=== PATIENT | male | born 1935 | race Caucasian/White ===

== ENCOUNTER 2016-12-05 16:03 | Emergency (ER) | payer MEDICARE, OTHER ==
[~2016-12-05] VITALS: Ht 172.7 cm; Wt 72.7 kg
[~2016-12-05 16:03] MED LIST: ASPI81 PO; ATOR40TA PO; NAME10TA PO; TOPR25TA2 PO; VITA-83 OR; VITA100020 SL
[2016-12-05 16:28] VITALS: BP 109/53; PULSE 71; RESP 16; TEMP 98.6; O2SAT 97
[2016-12-05] MEDS ORDERED: NAME10TA PO (19:20)
[2016-12-05] MEDS ORDERED: VITA500C9 CHEW (19:20)
[2016-12-05] MEDS ORDERED: DONE5TAB7 PO (19:20)
[2016-12-05] MEDS ORDERED: ASPI81CH CHEW (19:20)
[2016-12-05] MEDS ORDERED: FOLBTAB4 (19:20)
[2016-12-05] MEDS ORDERED: ATOR40TA16 PO (19:20)
[2016-12-05] MEDS ORDERED: VITA100064 PO (19:20)
[2016-12-05] MEDS ORDERED: VITA500T49 PO (19:20)
[2016-12-05] MEDS ORDERED: METO50TA PO (19:20)
--- NOTE | 2016-12-05 19:41 | PD ---
HPI Chief Complaint: Skin Problem Time Seen by Provider: 19:38 Travel History International Travel<30 days: No Contact w/Intl Traveler<30days: No Traveled to known affect area: No History of Present Illness HPI Patient comes in complaining of painful varicose vein the first are bothering him 2 days ago. Patient reports he has a long history of varicose veins has had surgery in the past per family, however they came back. Patient states he has pain in the varicose vein to palpation only. Denies any pain with walking. Denies any radiation of the pain. Patient denies doing anything for this. Denies any known trauma or fevers. Patient reports she is concerned that it may rupture and bleed similar to previous varicose vein. PFSH Past Medical History Arthritis: Yes Asthma: No Cancer: Yes (Bladder, prostate ) High Cholesterol: Yes Chest Pain: Yes COPD: Yes Diminished Hearing: No Endocrine: No Gastrointestinal Disorders: Yes GERD: Yes Genitourinary: No Hiatal Hernia: No Hypertension: Yes Immune Disorder: No Musculoskeletal: Yes Neurologic: No Psychiatric: No Respiratory: Yes Radiation Therapy: Yes Sleep Apnea: No Ulcer: Yes (1997) Past Surgical History Abdominal Aneurysm Repair: Yes (with stent) Abdominal Surgery: Yes (AAA 2001) Body Medical Devices: STENT GRAFT FOR AAA Cardiac Surgery: No Eye Surgery: Yes Pacemaker: No Thoracic Surgery: No Other Surgery: Yes (varicose vein ) Social History Alcohol Use: No Tobacco Use: No Substance Use: No Allergies-Medications (Allergen,Severity, Reaction): Coded Allergies: No Known Allergies (Verified , 12/05/16) Reported Meds & Prescriptions Reported Meds & Active Scripts Active Reported Vitamin D (Cholecalciferol) 1,000 Unit Tab 3,000 Units PO DAILY Vitamin C (Ascorbic Acid) 500 Mg Chew 500 Mg CHEW DAILY Vitamin B12 (Cyanocobalamin) 500 Mcg Tab 1,000 Mcg PO DAILY Aspirin 81 Mg Chew 81 Mg CHEW DAILY Folbic (Folic Xzsd-Rgijspbzkn-Ekdtvqlg) 2.5-25-2 Mg Tab Metoprolol Tartrate 50 Mg Tab 50 Mg PO DAILY Atorvastatin (Atorvastatin Calcium) 40 Mg Tab 40 Mg PO HS Donepezil 5 Mg Tab 5 Mg PO HS Namenda (Memantine) 10 Mg Tab 28 Mg PO DAILY Review of Systems Except as stated in HPI: all other systems reviewed are Neg Physical Exam Narrative GENERAL: Well-developed, well nourished, in no acute distress, and non-ill appearing. SKIN: Warm and dry. Multiple varicose veins noted bilateral upper extremities. Patient reports pain with palpation of the right posterior calf. It is afebrile, not indurated, without crepitus, or drainage. There is no signs of infection. HEAD: Atraumatic. Normocephalic. EYES: Pupils equal and round. EOMI. No scleral icterus. No injection or drainage. ENT: No nasal bleeding or discharge. Mucous membranes pink and moist. NECK: Trachea midline. Supple. No nuclear rigidity. CARDIOVASCULAR: Dorsal pulses 2+ intact and equal bilaterally. Capillary refill less 2 seconds. No pedal edema. RESPIRATORY: No accessory muscle use. No respiratory distress. MUSCULOSKELETAL: No obvious deformities. No clubbing. No cyanosis. No edema. Full range of motion. Normal gait. Negative Homans sign. NEUROLOGICAL: Awake and alert. No obvious cranial nerve deficits. Motor grossly within normal limits. Normal speech. PSYCHIATRIC: Appropriate mood and affect; insight and judgment normal. Data Data Last Documented VS Vital Signs Date Time Temp Pulse Resp B/P Pulse Ox O2 Delivery O2 Flow Rate FiO2 12/05/16 16:28 98.6 71 16 109/53 97 MDM Medical Decision Making Medical Screen Exam Complete: Yes Emergency Medical Condition: Yes Differential Diagnosis Varicose vein, cellulitis, thrombophlebitis, other Narrative Course Patient in no obvious distress upon re-evaluation. Any questions/concerns in reference to patient diagnosis/condition discussed and clarified prior to patient's discharge. Reinforced sheer importance of close follow up with patient 's primary physician or primary care clinic. Instructed patient to return to ED immediately, if symptoms return/worsen. Pt showed understanding of above instructions. Further instructions and recommendations were detailed in discharge paperwork. Pt ambulated without difficulty out of ED at discharge. Diagnosis Primary Impression: Varicose veins of both lower extremities Patient Instructions: General Instructions, Varicose Veins (ED) Additional Instructions: Follow-up with your primary care physician in 2-3 days for reevaluation. Return to the emergency department if symptoms get worse. Disposition: 01 DISCHARGE HOME Condition: Stable Gonzalo Banda Dec 05, 2016 19:41
== END 2016-12-05 19:54 | disposition home or self-care (01) ==
LOC: PHED 16:03 → PHEFT 19:54
DX: I83.813 Varicose veins of bilateral lower extremities with pain (principal)
CPT/HCPCS: 99282

== ENCOUNTER 2017-12-05 21:47 | Inpatient (IN) | payer MEDICARE, OTHER ==
[~2017-12-05] VITALS: Ht 175.3 cm; Wt 66.0 kg
[~2017-12-05 21:47] MED LIST changes: +ASPI-516 CHEW; -ASPI81 PO; -ATOR40TA PO; +ATOR40TA16 PO; +DONE5TAB7 PO; +FOLBTAB4; +METO50TA PO; -TOPR25TA2 PO; -VITA-83 OR; -VITA100020 SL; +VITA100064 PO; +VITA500C9 CHEW; +VITA500T35 PO
[2017-12-05 21:48] VITALS: BP 150/74; PULSE 85; RESP 24; TEMP 100; O2SAT 93
[2017-12-05] MEDS ORDERED: SODIUM CHLOR 0.9% 1000 ML INJ 1,000 ML IV ONE (21:57)
[2017-12-05] MEDS ORDERED: VITA250T3 PO (22:32)
[2017-12-05] MEDS ORDERED: TOPR50TA PO (22:32)
[2017-12-05] MEDS ORDERED: FOLI400T PO (22:32)
[2017-12-05] MEDS ORDERED: DONE10TA7 PO (22:32)
[2017-12-05] MEDS ORDERED: MEMA28CA PO (22:32)
[2017-12-05 22:33] LABS: AUTOMATED NEUTROPHIL # 13.7 TH/MM3 (1.8-7.7); BASOPHIL # 0.3 TH/MM3 (0-0.2); BASOPHIL % 1.8 % (0.0-2.0); HEMATOCRIT 37.5 % (39.0-51.0); HEMOGLOBIN 12.1 GM/DL (13.0-17.0); LYMPH % 2.9 % (9.0-44.0); LYMPHOCYTE # 0.4 TH/MM3 (1.0-4.8); MEAN CELL VOLUME 98.5 FL (80.0-100.0); MEAN CORPUSCULAR HEMOGLOBIN 31.9 PG (27.0-34.0); MEAN CORPUSCULAR HGB CONC 32.3 % (32.0-36.0); MEAN PLATELET VOLUME 8.3 FL (7.0-11.0); MONO % 4.2 % (0.0-8.0); MONOCYTE # 0.6 TH/MM3 (0-0.9); NEUT % 91.1 % (16.0-70.0); PLATELET COUNT 153 TH/MM3 (150-450); RED CELL DISTRIBUTION WIDTH 13.3 % (11.6-17.2)
[2017-12-05 22:35] LABS: CHLORIDE 109 MEQ/L (98-107); SODIUM (NA) 141 MEQ/L (136-145)
--- NOTE | 2017-12-05 22:35 | RADRPT ---
EXAM DATE/TIME: 12/05/2017 22:21 [facility] COMPARISON: No previous studies available for comparison. INDICATIONS : Cough, sneezing, and congestion. MEDICAL HISTORY : Carcinoma, bladder. Carcinoma, prostatic. Chronic obstructive pulmonary disease. SURGICAL HISTORY : None. ENCOUNTER: Initial ACUITY: 4 - 6 days PAIN SCORE: 0/10 LOCATION: Bilateral chest FINDINGS: A single view of the chest demonstrates minimal basilar scarring or atelectasis. No effusion. No pneu mothorax. Heart size mildly enlarged. Tortuous aorta. CONCLUSION: 1. Minimal basilar scarring or atelectasis. Tortuous aorta. No effusion or pneumothorax. Rui Mcmanus MD on December 05, 2017 at 22:33 Board Certified Radiologist. This report was verified electronically.
[2017-12-05 22:40] LABS: ALBUMIN 3.2 GM/DL (3.4-5.0); BICARBONATE 23.4 MEQ/L (21.0-32.0); CALCIUM 7.8 MG/DL (8.5-10.1); GLUCOSE,RANDOM 131 MG/DL (74-106); INTERNATIONAL NORMALIZED RATIO 1.1 RATIO; PROTHROMBIN TIME - PATIENT 11.4 SEC (9.8-11.6)
[2017-12-05 22:41] LABS: BLOOD UREA NITROGEN 25 MG/DL (7-18)
[2017-12-05 22:43] LABS: ALT (GPT) 19 U/L (12-78); AST (GOT) 28 U/L (15-37); GLOMERULAR FILTRATION RATE 58 ML/MIN (>89)
[2017-12-05 22:45] LABS: TOTAL BILIRUBIN ADULT 0.7 MG/DL (0.2-1.0); TOTAL PROTEIN 7.4 GM/DL (6.4-8.2)
[2017-12-05 22:46] LABS: ALKALINE PHOSPHATASE 123 U/L (45-117)
[2017-12-05 22:48] LABS: TROPONIN I LESS THAN 0.02 NG/ML (0.02-0.05)
--- NOTE | 2017-12-05 23:31 | PD ---
HPI Chief Complaint: Fever Time Seen by Provider: 21:57 Travel History International Travel<30 days: No Contact w/Intl Traveler<30days: No Traveled to known affect area: No History of Present Illness HPI Patient is an 82-year-old male with history of dementia, who comes in due to fever with cough. Per his , he has been coughing for about a week. She says today she noticed she was shaking, and he was very weak. She says eventually he was unable to get up on his own or stand on his own. She took his temperature tonight in case she says it was 101.7. She did give him some Tylenol prior to coming in. He has dementia, he cannot provide any history. PFSH Past Medical History Hx Anticoagulant Therapy: Yes (ASPIRIN DAILY) AAA: Yes Alzheimer's Disease: Yes Arthritis: Yes Asthma: No Cancer: Yes (Bladder, prostate ) Cardiovascular Problems: Yes (2D ECHO: 2015, NUCLEAR STRESS TEST: 2015) High Cholesterol: Yes Chest Pain: Yes COPD: Yes Dementia: Yes Diminished Hearing: No Endocrine: No Gastrointestinal Disorders: Yes (COLONOSCOPY: 2008) GERD: Yes Genitourinary: No Hiatal Hernia: No Hypertension: Yes Immune Disorder: No Musculoskeletal: Yes (FROZEN SHOULDER/ARTHRITIS) Neurologic: No Psychiatric: No Respiratory: Yes (COLLAPSED LUN) Myocardial Infarction: Yes Radiation Therapy: Yes Sleep Apnea: No Ulcer: Yes (1997) Tetanus Vaccination: < 5 Years Influenza Vaccination: Yes Past Surgical History Abdominal Aneurysm Repair: Yes (with stent) Abdominal Surgery: Yes (AAA STENT GRAFT: 2001, INGUINAL HERNIAS X3) Body Medical Devices: STENT GRAFT FOR AAA Cardiac Surgery: No Eye Surgery: Yes (BILATERAL CATARACT) Pacemaker: No Thoracic Surgery: No Other Surgery: Yes (varicose vein ) Social History Alcohol Use: No Tobacco Use: No (QUIT 1984) Substance Use: No Allergies-Medications (Allergen,Severity, Reaction): Coded Allergies: No Known Allergies (Verified Adverse Reaction, Unknown, 12/05/17) Reported Meds & Prescriptions Reported Meds & Active Scripts Active Reported Vitamin C (Ascorbic Acid) 250 Mg Tab 1,000 Mg PO HS Folic Acid 0.4 Mg Tab 400 Mcg PO HS Toprol XL (Metoprolol Succinate) 50 Mg Tab 50 Mg PO HS Donepezil 10 Mg Tab 10 Mg PO HS Namenda Xr (Memantine) 28 Mg Caper 28 Mg PO DAILY Vitamin D3 (Cholecalciferol) 1,000 Unit Tab 3,000 Units PO HS Vitamin B12 (Cyanocobalamin) 500 Mcg Tab 1,000 Mcg PO HS Aspirin 81 Mg Chew 81 Mg CHEW DAILY Atorvastatin (Atorvastatin Calcium) 40 Mg Tab 40 Mg PO HS Review of Systems ROS Limitations: Other: (Dementia) Physical Exam Narrative GENERAL: Awake and alert, in no acute distress. SKIN: Focused skin assessment warm/dry. No wounds or signs of infection. HEAD: Atraumatic. Normocephalic. EYES: Pupils equal and round. No scleral icterus. No injection or drainage. ENT: Mucous membranes pink and moist. NECK: Trachea midline. No JVD. CARDIOVASCULAR: Regular rate and rhythm. No murmur appreciated. RESPIRATORY: No accessory muscle use. Crackles in the right lung base. Breath sounds equal bilaterally. GASTROINTESTINAL: Abdomen soft, non-tender, nondistended. MUSCULOSKELETAL: No obvious deformities. No clubbing. No cyanosis. No edema. NEUROLOGICAL: Awake and alert, oriented to person only. No obvious cranial nerve deficits. Motor grossly within normal limits. Normal speech. PSYCHIATRIC: Appropriate mood and affect; insight and judgment normal. Data Data Last Documented VS Vital Signs Date Time Temp Pulse Resp B/P (MAP) Pulse Ox O2 Delivery O2 Flow Rate FiO2 12/05/17 22:46 97 Nasal Cannula 2.00 12/05/17 21:48 100.0 85 24 150/74 (99) Orders Orders Electrocardiogram (12/05/17 21:57) Complete Blood Count With Diff (12/05/17 21:57) Comprehensive Metabolic Panel (12/05/17 21:57) Prothrombin Time / Inr (Pt) (12/05/17 21:57) Act Partial Throm Time (Ptt) (12/05/17 21:57) Lactic Acid Sepsis Protocol (12/05/17 21:57) Troponin I (12/05/17 21:57) Urinalysis - C+S If Indicated (12/05/17 21:57) Influenzae A/B Antigen (12/05/17 21:57) Blood Culture (12/05/17 21:57) Chest, Single Ap (12/05/17 21:57) Blood Glucose (12/05/17 21:57) Ecg Monitoring (12/05/17 21:57) Iv Access Insert/Monitor (12/05/17 21:57) Oximetry (12/05/17 21:57) Oxygen Administration (12/05/17 21:57) Sodium Chlor 0.9% 1000 Ml Inj (Ns 1000 M (12/05/17 21:57) Ct Thorax/ Chest Wo Iv Contras (12/05/17 ) Sodium Chlorid 0.9% 500 Ml Inj (Ns 500 M (12/05/17 23:45) Ceftriaxone Inj (Rocephin Inj) (12/06/17 00:00) Azithromycin Inj (Zithromax Inj) (12/06/17 00:00) Labs Laboratory Tests Test 12/05/17 22:10 12/05/17 23:50 White Blood Count 15.0 TH/MM3 Red Blood Count 3.80 MIL/MM3 Hemoglobin 12.1 GM/DL Hematocrit 37.5 % Mean Corpuscular Volume 98.5 FL Mean Corpuscular Hemoglobin 31.9 PG Mean Corpuscular Hemoglobin Concent 32.3 % Red Cell Distribution Width 13.3 % Platelet Count 153 TH/MM3 Mean Platelet Volume 8.3 FL Neutrophils (%) (Auto) 91.1 % Lymphocytes (%) (Auto) 2.9 % Monocytes (%) (Auto) 4.2 % Eosinophils (%) (Auto) 0.0 % Basophils (%) (Auto) 1.8 % Neutrophils # (Auto) 13.7 TH/MM3 Lymphocytes # (Auto) 0.4 TH/MM3 Monocytes # (Auto) 0.6 TH/MM3 Eosinophils # (Auto) 0.0 TH/MM3 Basophils # (Auto) 0.3 TH/MM3 CBC Comment DIFF FINAL Differential Comment Prothrombin Time 11.4 SEC Prothromb Time International Ratio 1.1 RATIO Activated Partial Thromboplast Time 27.1 SEC Blood Urea Nitrogen 25 MG/DL Creatinine 1.20 MG/DL Random Glucose 131 MG/DL Total Protein 7.4 GM/DL Albumin 3.2 GM/DL Calcium Level 7.8 MG/DL Alkaline Phosphatase 123 U/L Aspartate Amino Transf (AST/SGOT) 28 U/L Alanine Aminotransferase (ALT/SGPT) 19 U/L Total Bilirubin 0.7 MG/DL Sodium Level 141 MEQ/L Potassium Level 3.9 MEQ/L Chloride Level 109 MEQ/L Carbon Dioxide Level 23.4 MEQ/L Anion Gap 9 MEQ/L Estimat Glomerular Filtration Rate 58 ML/MIN Lactic Acid Level 1.2 mmol/L Troponin I LESS THAN 0.02 NG/ML MDM Medical Decision Making Medical Screen Exam Complete: Yes Emergency Medical Condition: Yes Medical Record Reviewed: Yes Interpretation(s) ECG shows NSR at 83 with frequent PVCs. No ST elevation or depression. Differential Diagnosis pneumonia vs UTI vs electrolyte abnormalities vs dehydration vs influenza Narrative Course Patient is a 82 year old male with history of dementia who comes in due to fever with cough and weakness. Exam shows crackles at the right lung base. IV established, labs sent. Labs show an elevated WBC count to 15 with a left shift. Patient given IVF. CXR shows basial scarring/atelectasis. Concern is for pneumonia, CT chest ordered. Patient treated empirically with rocephin and Azithromycin. Patient is too weak to walk. Hypoxic on room air. He will be admitted for further management. Diagnosis Primary Impression: Pneumonia Qualified Codes: J18.1 - Lobar pneumonia, unspecified organism Additional Impressions: Fever Qualified Codes: R50.9 - Fever, unspecified Weakness Hypoxia Admitting Information Admitting Physician Requests: Admit Laney Greene MD Dec 05, 2017 23:31
[2017-12-05] MEDS ORDERED: SODIUM CHLORID 0.9% 500 ML INJ 500 ML IV ONE (23:45)
[2017-12-06] VITALS (10 sets, daily range): BP systolic 125–179; BP diastolic 69–84; PULSE 69–87; RESP 14–20; TEMP 96.5–98.8; O2SAT 94–98
[2017-12-06] MEDS ORDERED: cefTRIAXone INJ 1,000 MG in SODIUM CHLORIDE 0.9% INJ 100 ML IV ONE ×2
[2017-12-06] MEDS ORDERED: AZITHROMYCIN INJ 500 MG in SODIUM CHLOR 0.9% 250 ML INJ 250 ML IV ONE ×2
[2017-12-06 00:03] LABS: BILIRUBIN, URINE NEG (NEG); BLOOD, URINE SMALL (NEG); GLUCOSE,URINE NEG (NEG); KETONE, URINE NEG (NEG); NITRITE,URINE NEG (NEG); PH, URINE 5.5 (5.0-8.5); URINE LEUKOCYTE ESTERASE TRACE (NEG)
[2017-12-06 00:08] LABS: URINE COLOR YELLOW (YELLW/STRAW)
[2017-12-06 00:09] LABS: SQUAMOUS EPITHELIAL CELL URINE 0-5 /hpf (0-5)
[2017-12-06] MEDS ORDERED: SODIUM CHLORIDE 0.9% FLUSH 10 ML FLUSH IV FLUSH PRN (00:45)
[2017-12-06] MEDS ORDERED: NALOXONE HCL 0.4 MG/ML AMP IV PUSH PRN ×2 (00:45→09:30)
--- NOTE | 2017-12-06 00:58 | RADRPT ---
EXAM DATE/TIME: 12/06/2017 00:36 [facility] COMPARISON: CHEST SINGLE AP, December 05, 2017, 22:21. INDICATIONS : Evaluate for pneumonia. RADIATION DOSE: 8.56 CTDIvol (mGy) MEDICAL HISTORY : Dementia. Cardiovascular disease Hypertension. COPD SURGICAL HISTORY : Abdominal aortic aneurysm repair. Inguinal hernia repair. ENCOUNTER: Initial ACUITY: 1 day PAIN SCALE: 4/10 LOCATION: Bilateral chest TECHNIQUE: Volumetric scanning of the chest was performed. Using automated exposure control and adjustment of t he mA and/or kV according to patient size, radiation dose was kept as low as reasonably achievable to obtain optimal diagnostic quality images. DICOM format image data is available electronically for r eview and comparison. Follow-up recommendations for detected pulmonary nodules are based at a minimum on nodule size and pa tient risk factors according to Fleischner Society Guidelines. FINDINGS: Airspace process is present right lower lobe posteriorly most likely pneumonia with extensive CO PD changes. Approximate 2.2 cm triangular shaped density is present left lung base adjacent hemidiaph ragm probable scar and could be followed. Coronary artery calcifications are seen typically seen with CAD and need to be evaluated clinically. Approximate 1.3 cm simple cyst is present left hepatic lobe . CONCLUSION: 1. Right lower lobe pneumonia. 2. Probable scar left lung base, repeat noncontrast chest CT is suggested in 6 months as a conservati ve follow up. Jean Pierre Zavala MD on December 06, 2017 at 0:52 Board Certified Radiologist. This report was verified electronically.
[2017-12-06 06:04] LABS: HEMATOCRIT 34.3 % (39.0-51.0); HEMOGLOBIN 11.6 GM/DL (13.0-17.0); MEAN CELL VOLUME 98.6 FL (80.0-100.0); MEAN CORPUSCULAR HEMOGLOBIN 33.2 PG (27.0-34.0); MEAN CORPUSCULAR HGB CONC 33.7 % (32.0-36.0); MEAN PLATELET VOLUME 8.8 FL (7.0-11.0); PLATELET COUNT 115 TH/MM3 (150-450); RED BLOOD COUNT 3.48 MIL/MM3 (4.50-5.90); RED CELL DISTRIBUTION WIDTH 13.6 % (11.6-17.2)
[2017-12-06 06:14] LABS: CALCIUM 7.9 MG/DL (8.5-10.1)
[2017-12-06 06:15] LABS: BICARBONATE 26.1 MEQ/L (21.0-32.0)
[2017-12-06 06:18] LABS: CREATININE 0.95 MG/DL (0.60-1.30)
[2017-12-06 06:19] LABS: BANDS 12 % (0-6); LYMPHOCYTES 6 % (9-44); MONOCYTES 6 % (0-8); NEUTROPHIL # MANUAL DIFF 14.1 TH/MM3 (1.8-7.7); POLYS (SEG NEUTROPHILS) 76 % (16-70)
--- NOTE | 2017-12-06 08:51 | HHI.HP ---
[facility] Unknown Admission Diagnosis pneumonia, weakness, hypoxia Diagnoses: Chief Complaint: Cough, Fever, shortness of breath. Travel History International Travel<30 Days: No Contact w/Intl Traveler <30 Da: No Traveled to Known Affected Are: No Sepsis Criteria SIRS Criteria (2 or more): RR > 20 or PaCO2 < 32, WBC > 25749, < 4000 or > 10 % bands Sepsis Criteria (SIRS+source): Infect source susp/known Severe Sepsis (+one): Organ Dysfunction Criteria Outcome: Meets SIRS criteria, Meets sepsis criteria, Meets severe sepsis criteria History of Present Illness Mr. Hurd is a pleasant 82-year-old male with a history of dementia who presented to the emergency department on 12/05/2017 due to cough, shortness of breath, fever. He has been coughing for about a week and at home his temperature was 101.7. Over the week patient's noticed that patient has been getting weaker and also shaking occasionally. At the time of this interview, patient denies any acute concerns but periodically coughs. He denies any chest pain, shortness of breath, fever or chills. He denies any abdominal pain, nausea or vomiting. No changes in bowel or bladder habits. On arrival, temperature 100F, pulse 85, respiration 24, blood pressure 150/74, oxygen saturation 93%. WBC 15.0 with neutrophil count 91.1%. BUN 25, creatinine 1.20. Lactic acid 1.[address] shows right lower lobe pneumonia as well as emphysematous changes. Review of Systems Except as stated in HPI: all other systems reviewed are Neg Past Family Social History Past Medical History Dementia Collapsed lung in 2012 Hypercholesterolemia Bladder and prostate cancer : Disease AAA COPD GERD Hypertension Past Surgical History AAA stent graft, inguinal hernia surgery bilateral cataract surgery. Reported Medications Vitamin C (Ascorbic Acid) 250 Mg Tab 1,000 Mg PO HS Folic Acid 0.4 Mg Tab 400 Mcg PO HS Toprol XL (Metoprolol Succinate) 50 Mg Tab 50 Mg PO HS Donepezil 10 Mg Tab 10 Mg PO HS Namenda Xr (Memantine) 28 Mg Caper 28 Mg PO DAILY Vitamin D3 (Cholecalciferol) 1,000 Unit Tab 3,000 Units PO HS Vitamin B12 (Cyanocobalamin) 500 Mcg Tab 1,000 Mcg PO HS Aspirin 81 Mg Chew 81 Mg CHEW DAILY Atorvastatin (Atorvastatin Calcium) 40 Mg Tab 40 Mg PO HS Allergies: Coded Allergies: No Known Allergies (Verified Allergy, Unknown, 12/06/17) Family History No family history of Alzheimer's or Parkinson's. Social History And quit smoking in 1984. He denies using alcohol or illicit drugs. Physical Exam Vital Signs Vital Signs Date Time Temp Pulse Resp B/P (MAP) Pulse Ox O2 Delivery O2 Flow Rate FiO2 12/06/17 07:58 12/06/17 07:17 19 98 Nasal Cannula 2.00 12/06/17 07:10 98 Nasal Cannula 2.00 12/06/17 07:10 19 98 Nasal Cannula 2.00 12/06/17 07:10 98.2 84 19 175/82 (113) 98 Nasal Cannula 2.00 12/06/17 05:49 98.1 69 18 159/82 (107) 98 Nasal Cannula 2.00 12/06/17 05:49 66 98 Nasal Cannula 2.00 12/06/17 03:14 82 24 97 Nasal Cannula 2.00 12/06/17 01:20 97 Nasal Cannula 2.00 12/06/17 01:00 98.8 86 18 125/82 (96) 97 Nasal Cannula 2.00 12/05/17 22:46 97 Nasal Cannula 2.00 12/05/17 22:15 85 12/05/17 21:48 100.0 85 24 150/74 (99) 93 Physical Exam GENERAL: This is a well-nourished, well-developed patient, in no apparent distress. SKIN: No rashes, ecchymoses or lesions. Warm and dry. HEAD: Atraumatic. Normocephalic. No temporal or scalp tenderness. EYES: Pupils equal round and reactive. No injection or drainage. ENT: Nose without bleeding, purulent drainage or septal hematoma. Airway patent. NECK: Trachea midline. No lymphadenopathy. Supple, nontender, no meningeal signs. CARDIOVASCULAR: Regular rate and rhythm without murmurs, gallops, or rubs. No JVD. RESPIRATORY: Moderate air entry. Diminished breath sounds on the right side. Bibasilar crackles appreciated. GASTROINTESTINAL: Abdomen soft, non-tender, nondistended. No guarding. MUSCULOSKELETAL: Extremities without clubbing, cyanosis, or edema. NEUROLOGICAL: Awake and alert. Cranial nerves II through XII intact. No focal neurological deficits. Normal speech. Laboratory Laboratory Tests Test 12/05/17 22:10 12/05/17 23:50 12/06/17 05:48 White Blood Count 15.0 16.0 Red Blood Count 3.80 3.48 Hemoglobin 12.1 11.6 Hematocrit 37.5 34.3 Mean Corpuscular Volume 98.5 98.6 Mean Corpuscular Hemoglobin 31.9 33.2 Mean Corpuscular Hemoglobin Concent 32.3 33.7 Red Cell Distribution Width 13.3 13.6 Platelet Count 153 115 Mean Platelet Volume 8.3 8.8 Neutrophils (%) (Auto) 91.1 Lymphocytes (%) (Auto) 2.9 Monocytes (%) (Auto) 4.2 Eosinophils (%) (Auto) 0.0 Basophils (%) (Auto) 1.8 Neutrophils # (Auto) 13.7 Lymphocytes # (Auto) 0.4 Monocytes # (Auto) 0.6 Eosinophils # (Auto) 0.0 Basophils # (Auto) 0.3 CBC Comment DIFF FINAL AUTO DIFF Differential Comment FINAL DIFF MANUAL Prothrombin Time 11.4 Prothromb Time International Ratio 1.1 Activated Partial Thromboplast Time 27.1 Blood Urea Nitrogen 25 20 Creatinine 1.20 0.95 Random Glucose 131 126 Total Protein 7.4 Albumin 3.2 Calcium Level 7.8 7.9 Alkaline Phosphatase 123 Aspartate Amino Transf (AST/SGOT) 28 Alanine Aminotransferase (ALT/SGPT) 19 Total Bilirubin 0.7 Sodium Level 141 143 Potassium Level 3.9 4.0 Chloride Level 109 112 Carbon Dioxide Level 23.4 26.1 Anion Gap 9 5 Estimat Glomerular Filtration Rate 58 76 Lactic Acid Level 1.2 Troponin I LESS THAN 0.02 Urine Color YELLOW Urine Turbidity CLEAR Urine pH 5.5 Urine Specific [place] 1.012 Urine Protein 30 Urine Glucose (UA) NEG Urine Ketones NEG Urine Occult Blood SMALL Urine Nitrite NEG Urine Bilirubin NEG Urine Leukocyte Esterase TRACE Urine RBC 10-14 Urine WBC 6-8 Urine Squamous Epithelial Cells 0-5 Urine Bacteria NONE Microscopic Urinalysis Comment CULT NOT INDICATED Differential Total Cells Counted 100 Neutrophils % (Manual) 76 Band Neutrophils % 12 Lymphocytes % 6 Monocytes % 6 Neutrophils # (Manual) 14.1 Platelet Estimate LOW Platelet Morphology Comment NORMAL Red Cell Morphology Comment NORMAL Date/Time Source Procedure Growth Status 12/05/17 22:15 Blood Peripheral Aerobic Blood Culture Pending Received 12/05/17 22:15 Blood Peripheral Anaerobic Blood Culture Pending Received 12/05/17 22:10 Nasal Aspirate Influenza Types A,B Antigen (TOD) - Final NEGATIVE FOR FLU A AND B ANTIGEN.... Complete Result Diagram: 12/06/17 0548 12/06/17 0548 Imaging Last Impressions Chest X-Ray 12/05/172156 Signed Impressions: Service Date/Time: November 22:21 - CONCLUSION: 1. Minimal basilar scarring or atelectasis. Tortuous aorta. No effusion or pneumothorax. Rui Mcmanus MD Chest CT 12/05/17 0000 Signed Impressions: Service Date/Time: Wednesday, December 06, 2017 00:36 - CONCLUSION: 1. Right lower lobe pneumonia. 2. Probable scar left lung base, repeat noncontrast chest CT is suggested in 6 months as a conservative follow up. Jean Pierre Zavala MD Capgregoriai VTE Risk Assessment Caprini VTE Risk Assessment: Mod/High Risk (score >= 2) Caprini Risk Assessment Model Point Value = 1 Point Value = 2 Point Value = 3 Point Value = 5 Age 41-60 Minor surgery BMI > 25 kg/m2 Swollen legs Varicose veins or History of unexplained or recurrent spontaneous Oral contraceptives or hormone replacement Sepsis (< 1 month) Serious lung disease, including pneumonia (< 1 month) Abnormal pulmonary function Acute myocardial infarction Congestive heart failure (< 1 month) History of inflammatory bowel disease Medical patient at bed rest Age 61-74 Arthroscopic surgery Major open surgery (> 45 min) Laparoscopic surgery (> 45 min) Malignancy Confined to bed (> 72 hours) Immobilizing plaster cast Central venous access Age >= 75 History of VTE Family history of VTE Factor V Leiden Prothrombin [id number] Lupus anticoagulant Anticardiolipin antibodies Elevated serum homocysteine Heparin-induced thrombocytopenia Other congenital or acquired thrombophilia Stroke (< 1 month) Elective arthroplasty Hip, pelvis, or leg fracture Acute spinal cord injury (< 1 month) Prophylaxis Regimen Total Risk Factor Score Risk Level Prophylaxis Regimen 0-1 Low Early ambulation 2 Moderate Order ONE of the following: *Sequential Compression Device (SCD) *Heparin 5000 units SQ BID 3-4 Higher Order ONE of the following medications: *Heparin 5000 units SQ TID *Enoxaparin/Lovenox 40 mg SQ daily (WT < 150 kg, CrCl > 30 mL/min) *Enoxaparin/Lovenox 30 mg SQ daily (WT < 150 kg, CrCl > 10-29 mL/min) *Enoxaparin/Lovenox 30 mg SQ BID (WT < 150 kg, CrCl > 30 mL/min) AND/OR *Sequential Compression Device (SCD) 5 or more Highest Order ONE of the following medications: *Heparin 5000 units SQ TID (Preferred with Epidurals) *Enoxaparin/Lovenox 40 mg SQ daily (WT < 150 kg, CrCl > 30 mL/min) *Enoxaparin/Lovenox 30 mg SQ daily (WT < 150 kg, CrCl > 10-29 mL/min) *Enoxaparin/Lovenox 30 mg SQ BID (WT < 150 kg, CrCl > 30 mL/min) AND *Sequential Compression Device (SCD) Assessment and Plan Problem List: (1) Severe sepsis ICD Code: A41.9 - Sepsis, unspecified organism; R65.20 - Severe sepsis without septic shock (2) Community acquired pneumonia ICD Code: J18.9 - Pneumonia, unspecified organism (3) Acute kidney injury ICD Code: N17.9 - Acute kidney failure, unspecified (4) Alzheimer's dementia ICD Code: G30.9 - Alzheimer's disease, unspecified; F02.80 - Dementia in other diseases classified elsewhere without behavioral disturbance Assessment and Plan Mr. Hurd is a pleasant 82-year-old male with a history of all summer dementia who came to the emergency department due to cough, fever, shortness of breath and generalized weakness that has been going on for about 7 days prior to this admission. On arrival patient was found to have low-grade fever, tachypnea, acute kidney injury. CT chest shows right lower lobe pneumonia. He also has leukocytosis with neutrophil count 91.1%. - Severe sepsis (respiratory rate 24, WBC 15.0 K, known infection pneumonia, organ dysfunction acute kidney injury creatinine 1.2) - Community acquired pneumonia - COPD with significant emphysema - CT chest images reviewed by me - shows RLL pneumonia and significant emphysema. - CURB-65 score 2 ( BUN 25, Age 82 ==> score 2-5 hospitalization recommended) . - We'll start patient on ceftriaxone 2 g every 24 hours and azithromycin 500 mg every 24 hours. - CBC, BMP in the morning. - Supplemental oxygen to keep O2 saturation above 90%. DuoNeb when necessary. - Blood cultures pending. Flu screen Negative. - Acute kidney injury - creatinine 1.2 on admission improved to 0.95. Avoid nephrotoxins. - Alzheimer's dementia - Hyperlipidemia - CAD - Continue memantine and donepezil. Continue atorvastatin 40 mg daily at bedtime - Continue metoprolol succinate 50 mg by mouth daily at bedtime - Continue Aspirin 81mg Qday. Full code. Lovenox. Discharge Plan: If leukocytosis improves and patient remains afebrile, consider discharging patient on Levaquin 750 mg daily for a total 7 day course of antibiotics. Expect discharge in 1-2 days. Physician Certification 2 Midnight Certification Type: Admission for Inpatient Services Order for Inpatient Services The services are ordered in accordance with Medicare regulations or non- Medicare payer requirements, as applicable. In the case of services not specified as inpatient-only, they are appropriately provided as inpatient services in accordance with the 2-midnight benchmark. Estimated LOS (days): 2 days is the estimated time the patient will need to remain in the hospital, assuming treatment plan goals are met and no additional complications. Post-Hospital Plan: Analisa Aguiar DO Dec 06, 2017 8:51 am
[2017-12-06] MEDS ORDERED: ONDANSETRON HCL 4 MG/2 ML VIAL IVP PRN (09:30)
[2017-12-06] MEDS ORDERED: BISACODYL 10 MG SUPP RECTAL PRN (09:30)
[2017-12-06] MEDS ORDERED: LACTULOSE SYRUP 20 GM/30 ML CUP PO PRN (09:30)
[2017-12-06] MEDS ORDERED: ACETAMINOPHEN 325 MG TAB PO PRN (09:30)
[2017-12-06] MEDS ORDERED: MAGNESIUM HYDROXIDE SUSP 30 ML CUP PO PRN (09:30)
[2017-12-06] MEDS ORDERED: SENNOSIDES 8.6 MG TAB PO PRN (09:30)
[2017-12-06] MEDS ORDERED: RESP: ALBUTEROL 2.5 MG/IPRATROPIUM 0.5 MG NEB (PRN) NEB (10:00)
[2017-12-06] MEDS: cefTRIAXone INJ 2,000 MG in SODIUM CHLORIDE 0.9% INJ 100 ML IV SCH (14:42)
[2017-12-06] MEDS: ENOXAPARIN SODIUM 40 MG/0.4 ML SYRINGE SQ SCH (14:43)
[2017-12-06] MEDS: SODIUM CHLORIDE 0.9% FLUSH 10 ML FLUSH IV FLUSH SCH ×2 (14:55→20:42)
[2017-12-06] MEDS ORDERED: LORazepam 2 MG/ML VIAL IV PUSH ONE (20:15)
[2017-12-06] MEDS: ASCORBIC ACID 500 MG TAB PO SCH (20:41)
[2017-12-06] MEDS: FOLIC ACID 1 MG TAB PO SCH (20:41)
[2017-12-06] MEDS: ATORVASTATIN 40 MG TAB PO SCH (20:41)
[2017-12-06] MEDS: METOPROLOL SUCCINATE 50 MG EXTENDED RELEASE TAB PO SCH (20:41)
[2017-12-06] MEDS: CHOLECALCIFEROL (VIT D3) 1000 UNIT TAB PO SCH (20:41)
[2017-12-06] MEDS ORDERED: CYANOCOBALAMIN 100 MCG TAB PO SCH (21:00)
[2017-12-06] MEDS ORDERED: DONEPEZIL HCL 5 MG TAB PO SCH (21:00)
[2017-12-06] MEDS ORDERED: cefTRIAXone INJ 1,000 MG in SODIUM CHLORIDE 0.9% INJ 100 ML IV SCH (22:00)
[2017-12-06] MEDS ORDERED: AZITHROMYCIN INJ 250 MG in SODIUM CHLOR 0.9% 250 ML INJ 250 ML IV SCH (23:00)
[2017-12-06] MEDS: AZITHROMYCIN INJ 500 MG in SODIUM CHLOR 0.9% 250 ML INJ 250 ML IV SCH (23:04)
--- NOTE | 2017-12-07 00:18 | EKG ---
Date Performed: 12/05/2017 Time Performed: 22:16:44 PTAGE: 82 years EKG: Sinus rhythm WITH OCCASIONAL VENTRICULAR PREMATURE COMPLEXES BORDERLINE ECG PREVIOUS TRACING : 05/18/2013 02.07 Compared to prior tracing, PVCs present DOCTOR: Rl Lara Interpretating Date/Time 12/07/2017 00:16:59
[2017-12-07 06:19] LABS: AUTOMATED NEUTROPHIL # 6.9 TH/MM3 (1.8-7.7); BASOPHIL # 0.3 TH/MM3 (0-0.2); BASOPHIL % 3.3 % (0.0-2.0); EOSINOPHIL % 0.4 % (0.0-4.0); HEMATOCRIT 38.6 % (39.0-51.0); HEMOGLOBIN 12.6 GM/DL (13.0-17.0); LYMPH % 11.9 % (9.0-44.0); LYMPHOCYTE # 1.1 TH/MM3 (1.0-4.8); MEAN CELL VOLUME 98.8 FL (80.0-100.0); MEAN CORPUSCULAR HEMOGLOBIN 32.4 PG (27.0-34.0); MEAN CORPUSCULAR HGB CONC 32.8 % (32.0-36.0); MONO % 7.1 % (0.0-8.0); MONOCYTE # 0.6 TH/MM3 (0-0.9); NEUT % 77.3 % (16.0-70.0); PLATELET COUNT 135 TH/MM3 (150-450); RED BLOOD COUNT 3.91 MIL/MM3 (4.50-5.90); RED CELL DISTRIBUTION WIDTH 13.2 % (11.6-17.2); WHITE BLOOD COUNT 8.9 TH/MM3 (4.0-11.0)
[2017-12-07 06:36] LABS: CALCIUM 8.7 MG/DL (8.5-10.1)
[2017-12-07 06:37] LABS: BICARBONATE 28.5 MEQ/L (21.0-32.0)
[2017-12-07 06:40] LABS: CREATININE 0.9 MG/DL (0.60-1.30)
[2017-12-07 06:51] LABS: BANDS 5 % (0-6); LYMPHOCYTES 16 % (9-44); MONOCYTES 6 % (0-8); NEUTROPHIL # MANUAL DIFF 6.9 TH/MM3 (1.8-7.7); POLYS (SEG NEUTROPHILS) 73 % (16-70)
[2017-12-07 08:00] VITALS: BP 145/76; PULSE 72; RESP 18; TEMP 97.4; O2SAT 95
[2017-12-07 08:10] VITALS: O2SAT 95
[2017-12-07] MEDS ORDERED: MEMANTINE 28 MG PO SCH (09:00)
[2017-12-07] MEDS ORDERED: DEXTROSE 50% IN WATER 50 ML SYRINGE ONE (09:39)
--- NOTE | 2017-12-07 10:44 | HHI.PR ---
Subjective Remarks Patient seen in follow up for Pneumonia. Doing better. Fever and leukocytosis improved, tolerating antibiotics well. Patient somewhat agitated overnight secondary to dementia, Case discussed with patient and spouse regarding improvement Objective Vitals Vital Signs Date Time Temp Pulse Resp B/P (MAP) Pulse Ox O2 Delivery O2 Flow Rate FiO2 12/07/17 08:10 95 21 12/07/17 08:00 97.4 72 18 145/76 (99) 95 12/06/17 21:10 95 21 12/06/17 20:00 96.5 81 20 179/84 (115) 96 12/06/17 16:00 98.5 74 14 151/84 (106) 98 12/06/17 15:52 94 12/06/17 12:00 97.0 87 14 136/69 (91) 94 I/O 12/06/17 12/06/17 12/06/17 12/07/17 12/07/17 12/07/17 07:00 15:00 23:00 07:00 15:00 23:00 Intake Total 1850 ml 644 ml 500 ml Output Total 700 ml 400 ml Balance 1150 ml -400 ml 644 ml 500 ml Intake Oral 544 ml 0 ml IV Total 1850 ml 100 ml 500 ml Output Urine Total 700 ml 400 ml # Voids 5 2 3 3 # Bowel Movements 0 Result Diagram: 12/07/17 0603 12/07/17 0603 Imaging Last Impressions Chest X-Ray 12/05/172156 Signed Impressions: Service Date/Time: November 22:21 - CONCLUSION: 1. Minimal basilar scarring or atelectasis. Tortuous aorta. No effusion or pneumothorax. Rui Mcmanus MD Chest CT 12/05/17 0000 Signed Impressions: Service Date/Time: Wednesday, December 06, 2017 00:36 - CONCLUSION: 1. Right lower lobe pneumonia. 2. Probable scar left lung base, repeat noncontrast chest CT is suggested in 6 months as a conservative follow up. Jean Pierre Zavala MD Objective Remarks GENERAL: This is a well-nourished, well-developed patient, in no apparent distress. CARDIOVASCULAR: Regular rate and rhythm without murmurs, gallops, or rubs. RESPIRATORY: Upper respiratory coarse breath sounds but clear lung sounds in the bases GASTROINTESTINAL: Abdomen soft, non-tender, nondistended. Normal active bowel sounds MUSCULOSKELETAL: Extremities without clubbing, cyanosis, or edema. NEURO: Confused, moves all 4 extremities A/P Problem List: (1) Severe sepsis ICD Code: A41.9 - Sepsis, unspecified organism; R65.20 - Severe sepsis without septic shock Plan: Dramatically improved with resolution of fever and leukocytosis. Secondary to pneumonia, community-acquired (2) Community acquired pneumonia ICD Code: J18.9 - Pneumonia, unspecified organism Plan: Continue Rocephin and azithromycin (3) Acute kidney injury ICD Code: N17.9 - Acute kidney failure, unspecified Plan: Resolved after IV hydration (4) Alzheimer's dementia ICD Code: G30.9 - Alzheimer's disease, unspecified; F02.80 - Dementia in other diseases classified elsewhere without behavioral disturbance Plan: Stable, patient able to be cared for at home by Discharge Planning dc in am with Eva Olivares MD Dec 07, 2017 10:44
--- NOTE | 2017-12-07 10:45 | HHI.FF ---
Face to Face Verification Diagnosis: (1) Alzheimer's dementia (2) Community acquired pneumonia (3) Weakness Home Health Nursing Order: Medical education Signs/symptoms of disease process Nursing assessment with vital signs Home Health Aide Order: To Assist In: Bathing and personal care, marketing communications associate and meal prep Glass Technologist Order: To Evaluate: Living conditions/environment Order: To Provide: Long range planning I have seen patient Noam Hurd on 12/07/17. My clinical findings support the need for the requested home health care services because: Deconditioned w/ increased weakness Limited ability to care for self I certify that my clinical findings support that this patient is homebound because: Impaired cognitive ability/safety Eva Almonte MD Dec 07, 2017 10:45
[2017-12-07] MEDS ORDERED: LEVA500T33 PO (10:56)
[2017-12-07] MEDS ORDERED: PT OWN: NAMENDA XR 28MG PO SCH (11:00)
[2017-12-07] MEDS: cefTRIAXone INJ 2,000 MG in SODIUM CHLORIDE 0.9% INJ 100 ML IV SCH (11:45)
[2017-12-07] MEDS: ASPIRIN 81 MG CHEW TAB CHEW SCH (11:55)
[2017-12-07] MEDS: ENOXAPARIN SODIUM 40 MG/0.4 ML SYRINGE SQ SCH (11:55)
[2017-12-07] MEDS: SODIUM CHLORIDE 0.9% FLUSH 10 ML FLUSH IV FLUSH SCH ×2 (11:57→21:39)
[2017-12-07 12:00] VITALS: BP 165/72; PULSE 78; RESP 20; TEMP 97.4; O2SAT 94
[2017-12-07] MEDS ORDERED: DONEPEZIL HCL 5 MG TAB PO SCH (12:00)
[2017-12-07 16:00] VITALS: BP 136/69; PULSE 68; RESP 18; TEMP 97.5; O2SAT 93
[2017-12-07 20:00] VITALS: BP 168/81; PULSE 86; RESP 18; TEMP 98; O2SAT 98
[2017-12-07 20:07] VITALS: O2SAT 94
[2017-12-07] MEDS ORDERED: QUEtiapine FUMARATE 25 MG TAB PO SCH (21:00)
[2017-12-07] MEDS ORDERED: CYANOCOBALAMIN 1,000 MCG TAB PO SCH (21:15)
[2017-12-07] MEDS: CHOLECALCIFEROL (VIT D3) 1000 UNIT TAB PO SCH (21:38)
[2017-12-07] MEDS: ASCORBIC ACID 500 MG TAB PO SCH (21:38)
[2017-12-07] MEDS: METOPROLOL SUCCINATE 50 MG EXTENDED RELEASE TAB PO SCH (21:38)
[2017-12-07] MEDS: ATORVASTATIN 40 MG TAB PO SCH (21:39)
[2017-12-07] MEDS: FOLIC ACID 1 MG TAB PO SCH (21:39)
[2017-12-07] MEDS: AZITHROMYCIN INJ 500 MG in SODIUM CHLOR 0.9% 250 ML INJ 250 ML IV SCH (21:41)
[2017-12-08 00:29] VITALS: BP 167/80; PULSE 86; RESP 18; TEMP 97; O2SAT 92
[2017-12-08 08:00] VITALS: BP 172/80; PULSE 79; RESP 20; TEMP 97.1; O2SAT 95
[2017-12-08] MEDS: SODIUM CHLORIDE 0.9% FLUSH 10 ML FLUSH IV FLUSH SCH (09:00)
--- NOTE | 2017-12-08 09:01 | HHI.PR ---
Subjective Remarks patient seen and evaluated in follow-up for dementia with pneumonia. Overall improved Back to baseline Objective Vitals Vital Signs Date Time Temp Pulse Resp B/P (MAP) Pulse Ox O2 Delivery O2 Flow Rate FiO2 12/08/17 08:00 97.1 79 20 172/80 (110) 95 12/08/17 00:29 97.0 86 18 167/80 (109) 92 12/07/17 20:07 94 21 12/07/17 20:00 98.0 86 18 168/81 (110) 98 12/07/17 16:00 97.5 68 18 136/69 (91) 93 12/07/17 12:00 97.4 78 20 165/72 (103) 94 I/O 12/07/17 12/07/17 12/07/17 12/08/17 12/08/17 12/08/17 07:00 15:00 23:00 07:00 15:00 23:00 Intake Total 500 ml 775 ml 2 ml 320 ml Balance 500 ml 775 ml 2 ml 320 ml Intake Oral 0 ml 675 ml 320 ml IV Total 500 ml 100 ml 2 ml # Voids 3 4 3 # Bowel Movements 0 0 Result Diagram: 12/07/17 0603 12/07/17 0603 Objective Remarks GENERAL: This is a well-nourished, well-developed patient, in no apparent distress. CARDIOVASCULAR: Regular rate and rhythm without murmurs, gallops, or rubs. RESPIRATORY: Upper respiratory coarse breath sounds but clear lung sounds in the bases GASTROINTESTINAL: Abdomen soft, non-tender, nondistended. Normal active bowel sounds MUSCULOSKELETAL: Extremities without clubbing, cyanosis, or edema. NEURO: Confused, moves all 4 extremities A/P Problem List: (1) Severe sepsis ICD Code: A41.9 - Sepsis, unspecified organism; R65.20 - Severe sepsis without septic shock Plan: Dramatically improved with resolution of fever and leukocytosis. Secondary to pneumonia, community-acquired (2) Community acquired pneumonia ICD Code: J18.9 - Pneumonia, unspecified organism Plan: Continue oral antibiotics at home (3) Acute kidney injury ICD Code: N17.9 - Acute kidney failure, unspecified Plan: Resolved after IV hydration (4) Alzheimer's dementia ICD Code: G30.9 - Alzheimer's disease, unspecified; F02.80 - Dementia in other diseases classified elsewhere without behavioral disturbance Plan: Stable, patient able to be cared for at home by Discharge Planning dc home today [facility] Eva Almonte MD Dec 08, 2017 09:01
--- NOTE | 2017-12-08 09:02 | HHI.DS ---
Discharge Summary Admission Date Dec 06, 2017 at 08:51 Discharge Date: Dec 08, 2017 Admitting Diagnosis pneumonia, weakness, hypoxia (1) Severe sepsis ICD Code: A41.9 - Sepsis, unspecified organism; R65.20 - Severe sepsis without septic shock (2) Community acquired pneumonia ICD Code: J18.9 - Pneumonia, unspecified organism (3) Acute kidney injury ICD Code: N17.9 - Acute kidney failure, unspecified (4) Alzheimer's dementia ICD Code: G30.9 - Alzheimer's disease, unspecified; F02.80 - Dementia in other diseases classified elsewhere without behavioral disturbance Procedures None Brief History - From Admission Mr. Hurd is a pleasant 82-year-old male with a history of dementia who presented to the emergency department on 12/05/2017 due to cough, shortness of breath, fever. He has been coughing for about a week and at home his temperature was 101.7. Over the week patient's noticed that patient has been getting weaker and also shaking occasionally. At the time of this interview, patient denies any acute concerns but periodically coughs. He denies any chest pain, shortness of breath, fever or chills. He denies any abdominal pain, nausea or vomiting. No changes in bowel or bladder habits. On arrival, temperature 100F, pulse 85, respiration 24, blood pressure 150/74, oxygen saturation 93%. WBC 15.0 with neutrophil count 91.1%. BUN 25, creatinine 1.20. Lactic acid 1.[address] shows right lower lobe pneumonia as well as emphysematous changes. CBC/BMP: 12/07/17 0603 12/07/17 0603 Significant Findings Laboratory Tests Test 12/05/17 22:10 12/05/17 23:50 12/06/17 05:48 12/07/17 06:03 White Blood Count 15.0 TH/MM3 (4.0-11.0) 16.0 TH/MM3 (4.0-11.0) Red Blood Count 3.80 MIL/MM3 (4.50-5.90) 3.48 MIL/MM3 (4.50-5.90) 3.91 MIL/MM3 (4.50-5.90) Hemoglobin 12.1 GM/DL (13.0-17.0) 11.6 GM/DL (13.0-17.0) 12.6 GM/DL (13.0-17.0) Hematocrit 37.5 % (39.0-51.0) 34.3 % (39.0-51.0) 38.6 % (39.0-51.0) Neutrophils (%) (Auto) 91.1 % (16.0-70.0) 77.3 % (16.0-70.0) Lymphocytes (%) (Auto) 2.9 % (9.0-44.0) Neutrophils # (Auto) 13.7 TH/MM3 (1.8-7.7) Lymphocytes # (Auto) 0.4 TH/MM3 (1.0-4.8) Basophils # (Auto) 0.3 TH/MM3 (0-0.2) 0.3 TH/MM3 (0-0.2) Blood Urea Nitrogen 25 MG/DL (7-18) 20 MG/DL (7-18) Random Glucose 131 MG/DL (74-106) 126 MG/DL (74-106) Albumin 3.2 GM/DL (3.4-5.0) Calcium Level 7.8 MG/DL (8.5-10.1) 7.9 MG/DL (8.5-10.1) Alkaline Phosphatase 123 U/L (45-117) Chloride Level 109 MEQ/L (98-107) 112 MEQ/L (98-107) Estimat Glomerular Filtration Rate 58 ML/MIN (>89) 76 ML/MIN (>89) 81 ML/MIN (>89) Troponin I LESS THAN 0.02 NG/ML Urine Protein 30 mg/dL (NEG-TRACE) Urine Occult Blood SMALL (NEG) Urine Leukocyte Esterase TRACE (NEG) Urine RBC 10-14 /hpf (0-3) Urine WBC 6-8 /hpf (0-5) Platelet Count 115 TH/MM3 (150-450) 135 TH/MM3 (150-450) Neutrophils % (Manual) 76 % (16-70) 73 % (16-70) Band Neutrophils % 12 % (0-6) Lymphocytes % 6 % (9-44) Neutrophils # (Manual) 14.1 TH/MM3 (1.8-7.7) Platelet Estimate LOW (NORMAL) LOW (NORMAL) Basophils (%) (Auto) 3.3 % (0.0-2.0) Imaging Last Impressions Chest X-Ray 12/05/17 2157 Signed Impressions: Service Date/Time: November 22:21 - CONCLUSION: 1. Minimal basilar scarring or atelectasis. Tortuous aorta. No effusion or pneumothorax. Rui Mcmanus MD Chest CT 12/05/17 0000 Signed Impressions: Service Date/Time: Wednesday, December 06, 2017 00:36 - CONCLUSION: 1. Right lower lobe pneumonia. 2. Probable scar left lung base, repeat noncontrast chest CT is suggested in 6 months as a conservative follow up. Jean Pierre Zavala MD PE at Discharge GENERAL: This is a well-nourished, well-developed patient, in no apparent distress. CARDIOVASCULAR: Regular rate and rhythm without murmurs, gallops, or rubs. RESPIRATORY: Upper respiratory coarse breath sounds but clear lung sounds in the bases GASTROINTESTINAL: Abdomen soft, non-tender, nondistended. Normal active bowel sounds MUSCULOSKELETAL: Extremities without clubbing, cyanosis, or edema. NEURO: Confused, moves all 4 extremities Pt update on day of discharge Please see daily progress note Hospital Course Seen and treated for severe sepsis secondary to pneumonia. Overall he improved. He was given IV antibiotics and IV hydration. Pt Condition on Discharge: Stable Discharge Disposition: Disch w/ Home Health Serv Discharge Time: <= 30 minutes Discharge Instructions DIET: Follow Instructions for: As Tolerated, No Restrictions Activities you can perform: Regular-No Restrictions Follow up Referrals: PCP Follow-up - 1 Week New Medications: Levofloxacin (Levaquin) 500 Mg Tablet 500 MG PO DAILY for Infection, #7 TAB 0 Refills Continued Medications: Ascorbic Acid (Vitamin C) 250 Mg Tab 1000 MG PO HS for Nutritional Supplement, TAB 0 Refills Aspirin (Aspirin) 81 Mg Chew 81 MG CHEW DAILY, TAB 0 Refills Atorvastatin (Atorvastatin) 40 Mg Tab 40 MG PO HS for Cholesterol Management, #30 TAB 0 Refills Cholecalciferol (Vitamin D3) 1,000 Unit Tab 3000 UNITS PO HS for Nutritional Supplement, #1 BOTTLE 0 Refills Cyanocobalamin (Vitamin B12) 500 Mcg Tab 1000 MCG PO HS, #1 BOTTLE Donepezil (Donepezil) 10 Mg Tab 10 MG PO HS for Dementia, #30 TAB 0 Refills Folic Acid (Folic Acid) 0.4 Mg Tab 400 MCG PO HS for Nutritional Supplement, TAB 0 Refills Memantine Er (Namenda Xr) 28 Mg Caper 28 MG PO DAILY for Alzheimer Disease, #30 CAP 0 Refills Metoprolol Succinate ER 24 HR (Toprol XL) 50 Mg Tab 50 MG PO HS, #30 TAB 0 Refills Eva Almonte MD Dec 08, 2017 09:02
[2017-12-08] MEDS: ASPIRIN 81 MG CHEW TAB CHEW SCH (09:55)
[2017-12-08] MEDS: ENOXAPARIN SODIUM 40 MG/0.4 ML SYRINGE SQ SCH (10:18)
== END 2017-12-08 11:41 | disposition home health service (06) | DRG 871 ==
LOC: PHED 21:47 → PHEDA 12-06 00:32 → PHEDH 12-06 04:56 → PH3A 12-06 08:10 → OBSVTOIN 12-06 08:51
PROVIDERS: ADMIT Hospitalist; ATTEND Hospitalist
DX: A41.9 Sepsis, unspecified organism (principal); J18.9 Pneumonia, unspecified organism; N17.9 Acute kidney failure, unspecified; G30.9 Alzheimer's disease, unspecified; F05 Delirium due to known physiological condition; J98.11 Atelectasis; J43.9 Emphysema, unspecified; R65.20 Severe sepsis without septic shock; R09.02 Hypoxemia; F02.80 Dementia in other diseases classified elsewhere, unspecified severity, without behavioral disturbance, psychotic disturbance, mood disturbance, and anxiety; I10 Essential (primary) hypertension; E78.5 Hyperlipidemia, unspecified; K21.9 Gastro-esophageal reflux disease without esophagitis; I25.10 Atherosclerotic heart disease of native coronary artery without angina pectoris; I25.2 Old myocardial infarction; Z85.46 Personal history of malignant neoplasm of prostate; Z92.3 Personal history of irradiation; Z87.891 Personal history of nicotine dependence
CPT/HCPCS: 71045; 71250; 80048; 80053; 81001; 83605; 84484; 85007; 85025; 85027; 85610; 85730; 87040; 87804; 93005; 96361; 96365; J0456; J0696; J1650; J2060; J7030; J7040; J7050

== ENCOUNTER 2017-12-18 13:34 | Emergency (ER) | payer OTHER, MEDICARE ==
[~2017-12-18] VITALS: Ht 172.7 cm; Wt 67.0 kg
[~2017-12-18 13:34] MED LIST changes: +DONE10TA7 PO; -DONE5TAB7 PO; -FOLBTAB4; +FOLI400T PO; +LEVA500T33 PO; +MEMA28CA PO; -METO50TA PO; -NAME10TA PO; +TOPR50TA PO; +VITA250T3 PO; -VITA500C9 CHEW
[2017-12-18 13:38] VITALS: BP 118/60; PULSE 74; RESP 18; TEMP 97.7; O2SAT 97
--- NOTE | 2017-12-18 14:39 | PD ---
HPI Chief Complaint: Fall Time Seen by Provider: 14:07 Travel History International Travel<30 days: No Contact w/Intl Traveler<30days: No Traveled to known affect area: No History of Present Illness HPI 82-year-old male presents to the emergency room for evaluation of right shoulder pain, right rib pain and right facial laceration after mechanical trip and fall just prior to arrival. Patient's presents with him and provides some of the history. She states she was walking in front of him over a curb and he lost his footing and tripped over the curb falling on his right side before striking his face on the concrete. No loss of consciousness. His glasses cut the skin around his right eye. He takes baby aspirin daily. Patient reports pain in his upper shoulder blade. Denies any other pain at this time. His reports that he was complaining of rib pain earlier. He has not received anything for pain. He takes baby aspirin daily. Last tetanus was within 5 years. PFSH Past Medical History Hx Anticoagulant Therapy: Yes (ASPIRIN DAILY) AAA: Yes Alzheimer's Disease: Yes Arthritis: Yes Asthma: No Autoimmune Disease: No Cancer: Yes (Bladder, prostate ) Cardiovascular Problems: Yes (2D ECHO: 2015, NUCLEAR STRESS TEST: 2016) High Cholesterol: Yes Chemotherapy: No Chest Pain: Yes COPD: Yes Dementia: Yes Diminished Hearing: No Endocrine: No Gastrointestinal Disorders: Yes (COLONOSCOPY: 2008) GERD: Yes Genitourinary: Yes Hiatal Hernia: No Hypertension: Yes Immune Disorder: No Implanted Vascular Access Dvce: Yes Musculoskeletal: Yes Neurologic: No Psychiatric: No Reproductive: No Respiratory: Yes (COLLAPSED LUN) Myocardial Infarction: Yes Radiation Therapy: Yes (gold seed implanted for radiation) Sleep Apnea: No Ulcer: Yes (1997) Tetanus Vaccination: < 5 Years Influenza Vaccination: Yes Past Surgical History Abdominal Aneurysm Repair: Yes (with stent) Abdominal Surgery: Yes (AAA STENT GRAFT: 2001, INGUINAL HERNIAS X3) Body Medical Devices: STENT GRAFT FOR AAA Cardiac Surgery: No Eye Surgery: Yes (BILATERAL CATARACT) Pacemaker: No Thoracic Surgery: Yes (removal of center right lobe) Other Surgery: Yes (varicose vein ) Social History Alcohol Use: No Tobacco Use: No (QUIT 1984) Substance Use: No Allergies-Medications (Allergen,Severity, Reaction): Coded Allergies: No Known Allergies (Verified Allergy, Unknown, 12/18/17) Reported Meds & Prescriptions Reported Meds & Active Scripts Active Reported Vitamin C (Ascorbic Acid) 250 Mg Tab 1,000 Mg PO HS Folic Acid 0.4 Mg Tab 400 Mcg PO HS Toprol XL (Metoprolol Succinate) 50 Mg Tab 50 Mg PO HS Donepezil 10 Mg Tab 10 Mg PO HS Namenda Xr (Memantine) 28 Mg Caper 28 Mg PO DAILY Vitamin D3 (Cholecalciferol) 1,000 Unit Tab 3,000 Units PO HS Vitamin B12 (Cyanocobalamin) 500 Mcg Tab 1,000 Mcg PO HS Aspirin 81 Mg Chew 81 Mg CHEW DAILY Atorvastatin (Atorvastatin Calcium) 40 Mg Tab 40 Mg PO HS Review of Systems Except as stated in HPI: all other systems reviewed are Neg Physical Exam Narrative GENERAL: Well-nourished, well-developed male in no acute distress. Afebrile. SKIN: Focused skin assessment warm/dry. 2 superficial abrasions around the right lateral eye. HEAD: Normocephalic. EYES: No scleral icterus. No injection or drainage. NECK: Supple, trachea midline. No JVD or lymphadenopathy. CARDIOVASCULAR: Regular rate and rhythm without murmurs, gallops, or rubs. RESPIRATORY: Breath sounds equal bilaterally. No accessory muscle use. CHEST: Nontender throughout without deformity or crepitus. No retractions or use of accessory muscles. MUSCULOSKELETAL: No cyanosis. Radial, ulnar, median nerves intact. 2+ radial pulse. Limited range of motion of the right shoulder secondary to pain. Tenderness to palpation of the right scapular spine and acromion. NEUROLOGICAL: Awake and alert. Cranial nerves II through XII intact. Motor and sensory grossly within normal limits. Five out of 5 muscle strength in all muscle groups. Normal speech. Data Data Last Documented VS Vital Signs Date Time Temp Pulse Resp B/P (MAP) Pulse Ox O2 Delivery O2 Flow Rate FiO2 12/18/17 13:42 (79) 12/18/17 13:38 97.7 74 18 97 Room Air Orders Orders Ct Brain W/O Iv Contrast(Rout) (12/18/17 ) Shoulder, Complete (>2vws) (12/18/17 ) Ribs, Uni (W/Exp Cxr-Min 3vw) (12/18/17 ) MDM Medical Decision Making Medical Screen Exam Complete: Yes Emergency Medical Condition: Yes Medical Record Reviewed: Yes Differential Diagnosis Fall, laceration, contusion, abrasion, strain, sprain, fracture Narrative Course 82-year-old male presents to the emergency room for evaluation of right scapular pain, right lateral rib pain after mechanical trip and fall just prior to arrival. Patient tripped over a curb and fell forward landing on his right side. He struck the right side of his head on concrete and cut the right side of his face with his glasses. There is no loss of consciousness. He takes baby aspirin daily. There is mild abrasions to the skin lateral to the right eye but no lacerations requiring repair. Patient is up-to-date on tetanus. Right upper extremity is neurovascularly intact with 2+ radial pulse. Radial, ulnar, median nerves intact. There is tenderness to palpation over the scapular spine but no obvious deformity. No winged scapula. No ecchymosis. The right lateral rib cage is nontender. No crepitus or obvious deformity. Lung sounds clear and equal bilaterally. CT of the brain and x-rays of rib cage and shoulder are negative. Patient was reassured. Told to follow-up with her primary care physician or return for worsening symptoms. He understands and agrees to plan. Diagnosis Primary Impression: Facial abrasion Qualified Codes: S00.81XA - Abrasion of other part of head, initial encounter Additional Impressions: Fall Qualified Codes: W19.XXXA - Unspecified fall, initial encounter Pain of right scapula Referrals: Primary Care Physician Additional Instructions: Rest and drink plenty of fluids. Take Tylenol as directed, as needed for pain. Apply ice to the affected area for 20 minutes at a time, as needed for pain and swelling. Follow-up with a primary care physician. Return to the emergency room for worsening symptoms. Disposition: 01 DISCHARGE HOME Condition: Stable Ju Staton Dec 18, 2017 14:39
--- NOTE | 2017-12-18 15:34 | RADRPT ---
EXAM DATE/TIME: 12/18/2017 14:45 [facility] COMPARISON: No previous studies available for comparison. INDICATIONS : Right shoulder pain post fall today MEDICAL HISTORY : None. SURGICAL HISTORY : None. ENCOUNTER: Initial ACUITY: 1 day PAIN SCORE: 10/10 LOCATION: Right posterior shoulder FINDINGS: There is no evidence of acute fracture. Bony mineralization is normal. There is mild osteoarthritis i nvolving the acromioclavicular joint. Emphysematous changes are present in the right upper lobe. CONCLUSION: 1. There is no evidence of acute fracture. Sean Mcwilliams MD on December 18, 2017 at 15:29 Board Certified Radiologist. This report was verified electronically.
--- NOTE | 2017-12-18 15:50 | RADRPT ---
EXAM DATE/TIME: 12/18/2017 14:45 [facility] COMPARISON: CHEST SINGLE AP, May 29, 2013, 5:40. CHEST SINGLE AP, December 05, 2017, 22:21. CT THORAX W/O CO NTRAST, December 06, 2017, 0:36. INDICATIONS : Right sided rib pain post fall today MEDICAL HISTORY : None. SURGICAL HISTORY : None. ENCOUNTER: Initial ACUITY: 1 day PAIN SCORE: 10/10 LOCATION: Right posterior ribs FINDINGS: 6 views of the right ribs and chest demonstrate no rib fracture or acute abnormality. No pneumothorax is identified. The lungs demonstrate background changes indicating emphysema. There is a staple line in the right lower lung zone with chronic interstitial opacities at the right lung base. Atheroscler otic disease is present within the aorta. CONCLUSION: 1. No rib fracture or acute rib abnormality is identified. 2. Emphysema with chronic interstitial opacities at the right lung base. Noam Walker MD on December 18, 2017 at 15:45 Board Certified Radiologist. This report was verified electronically.
--- NOTE | 2017-12-18 16:01 | RADRPT ---
EXAM DATE/TIME: 12/18/2017 15:28 [facility] COMPARISON: No previous studies available for comparison. INDICATIONS : Trauma, fell and hit head. RADIATION DOSE: 63.56 CTDIvol (mGy) MEDICAL HISTORY : Aneurysm, abdominal. Carcinoma, prostate. Chronic obstructive pulmonary disease. SURGICAL HISTORY : None. ENCOUNTER: Initial ACUITY: 1 day PAIN SCALE: 5/10 LOCATION: cranial TECHNIQUE: Multiple contiguous axial images were obtained of the head. Using automated exposure control and adj ustment of the mA and/or kV according to patient size, radiation dose was kept as low as reasonably a chievable to obtain optimal diagnostic quality images. DICOM format image data is available electro nically for review and comparison. FINDINGS: CEREBRUM: There is generalized atrophy with moderate periventricular white matter low attenuation. Ventricles a re normal in size. No evidence of midline shift, mass lesion, hemorrhage or acute infarction. No ex tra-axial fluid collections are seen. POSTERIOR FOSSA: The cerebellum and brainstem are intact. The 4th ventricle is midline. The cerebellopontine angle i s unremarkable. EXTRACRANIAL: There is a small air-fluid level in the right maxillary antrum. SKULL: The calvaria is intact. No evidence of skull fracture. CONCLUSION: 1. No acute intracranial abnormality is identified. 2. Chronic changes include generalized atrophy and chronic periventricular white matter change. 3. Small air-fluid level in the right maxillary sinus. Noam Walker MD on December 18, 2017 at 15:49 Board Certified Radiologist. This report was verified electronically.
== END 2017-12-18 16:53 | disposition home or self-care (01) ==
LOC: PHEFT 13:34
DX: S00.81XA Abrasion of other part of head, initial encounter (principal); M25.511 Pain in right shoulder; I10 Essential (primary) hypertension; I25.2 Old myocardial infarction; E78.00 Pure hypercholesterolemia, unspecified; J44.9 Chronic obstructive pulmonary disease, unspecified; G30.9 Alzheimer's disease, unspecified; F02.80 Dementia in other diseases classified elsewhere, unspecified severity, without behavioral disturbance, psychotic disturbance, mood disturbance, and anxiety; W10.1XXA Fall (on)(from) sidewalk curb, initial encounter; W01.198A Fall on same level from slipping, tripping and stumbling with subsequent striking against other object, initial encounter; Z85.46 Personal history of malignant neoplasm of prostate; Z85.51 Personal history of malignant neoplasm of bladder; Z87.891 Personal history of nicotine dependence; Z79.82 Long term (current) use of aspirin; Z79.899 Other long term (current) drug therapy
CPT/HCPCS: 70450; 71101; 73030